=== PATIENT | male | born 1995 | race Caucasian/White ===

== ENCOUNTER 2016-11-21 08:58 | Emergency (ER) | payer OTHER ==
[2016-11-21] MEDS ORDERED: DIAZEPAM 5 MG/ML SYRINGE 2 ML ONE (09:10)
[2016-11-21 10:17] LABS: ABSOLUTE NEUTROPHIL COUNT 7.5 K/mm3 (1.8-7.7); BASO % 0.1 % (0.2-1.0); EOS % 0.1 % (0.9-2.9); HEMATOCRIT 37.9 % (32.0-52.0); HEMOGLOBIN 12.8 gm/l (14.0-18.0); IMM NEUT% 0.2 % (0-1); LYMPH # 1.2 (1.0-4.8); LYMPH % 12.8 % (15-45); MEAN CELL VOLUME 86.1 fl (80.0-94.0); MEAN CORPUSCULAR HEMOGLOBIN 29.1 pg (27.0-31.0); MEAN CORPUSCULAR HGB CONC 33.8 g/dl (33.0-37.0); MEAN PLATELET VOLUME 10.5 fl (7.4-10.4); MONO # 0.7 (0.0-0.8); MONO % 7.8 % (4-12); PLATELET COUNT 146 K/mm3 (130-400); RED CELL DISTRIBUTION WIDTH 13.5 % (11.5-14.5)
[2016-11-21 10:35] LABS: ALB/GLOB RATIO 1.4 (>1.0); ALBUMIN 4.9 gm/dL (3.5-5.7); CALCIUM 10.2 mg/dL (8.6-10.3)
== END 2016-11-21 10:25 | disposition home or self-care (01) ==
LOC: ED 08:58
DX: G40.909 Epilepsy, unspecified, not intractable, without status epilepticus (principal); F84.0 Autistic disorder; Z79.899 Other long term (current) drug therapy
CPT/HCPCS: 85025; 80053; 80164; 36415; 99283 ×2; 96372; J3360

== ENCOUNTER 2017-01-09 12:32 | Emergency (ER) | payer OTHER ==
[2017-01-09] MEDS ORDERED: MIDAZOLAM HCL 5 MG/ML ONE (12:37)
== END 2017-01-09 14:28 | disposition home or self-care (01) ==
LOC: ED 12:32
DX: G40.909 Epilepsy, unspecified, not intractable, without status epilepticus (principal); F84.0 Autistic disorder; Z79.899 Other long term (current) drug therapy
CPT/HCPCS: 99282; 36415; 99283; J2250